=== PATIENT | female | born 2000 | race Caucasian/White ===

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

== ENCOUNTER 2018-08-21 03:04 | Inpatient (IN) | payer BC ==
[2018-08-21] MEDS ORDERED: Carboprost Tromethamine 250 MCG/1 ML Amp IM PRN (05:11)
[2018-08-21] MEDS ORDERED: Lidocaine 1% 50 ML MDV INJECT PRN (05:11)
[2018-08-21] MEDS ORDERED: Sodium Chloride 0.9% 10 ML Syringe FLUSH PRN (05:11)
[2018-08-21] MEDS ORDERED: Sodium Chloride 0.9% 10 ML SDV IV PRN (05:11)
[2018-08-21] MEDS ORDERED: Sodium Chloride 0.9% 2.5 ML Syringe FLUSH PRN (05:11)
[2018-08-21] MEDS ORDERED: Nalbuphine 10 MG/1 ML Vial IVPUSH PRN (05:11)
[2018-08-21] MEDS ORDERED: Tranexamic Acid 1,000 MG in Sodium Chloride 0.9% 100 ML IV PRN (05:11)
[2018-08-21] MEDS ORDERED: Methylergonovine 0.2 MG/1 ML Amp IM PRN (05:11)
[2018-08-21] MEDS ORDERED: Misoprostol 200 MCG Tab PO PRN (05:11)
[2018-08-21] MEDS ORDERED: Butorphanol 1 MG/ML SDV IVPUSH PRN (05:11)
[2018-08-21] MEDS ORDERED: Water For Irrigation,Sterile 1,000 ML Container IRR PRN (05:11)
[2018-08-21] MEDS: Lactated Ringers 1,000 ML IV SCH ×4 (05:12→10:11)
[2018-08-21] MEDS ORDERED: Nalbuphine 10 MG/1 ML Vial ONE (05:14)
[2018-08-21] MEDS ORDERED: Oxytocin/0.9 % Sodium Chloride 30 UNIT/500 ML BAG IV SCH ×2 (05:15→09:00)
--- NOTE | 2018-08-21 05:27 | PCM.LDHP ---
L&D History of Present Illness - General Date of Service: 08/21/18 Admit Problem/Dx: Patient Status Order with Admit Dx/Problem 08/21/18 03:16 Patient Status [ADT] Routine 08/21/18 05:11 Patient Status [ADT] Routine Admission Diagnosis/Problem Admission Diagnosis/Problem - planned 08/21/18 05:19 18 yo EDC 08/20/2018 40 1/70 wks, Active labor, O-, [place], GBS neg. Source of Information: Patient History Limitations: Reports: No Limitations - History of Present Illness Timing/Duration: Reports: minutes: Location, : Reports: Abdomen, Lower back Quality: Reports: Ache, Pressure, Stabbing Severity: Moderate Improves with: Reports: None Worsens with: Reports: None Associated Symptoms: Reports: N - Related Data Allergies/Adverse Reactions: Allergies Allergy/AdvReac Type Severity Reaction Status Date / Time No Known Allergies Allergy Verified 07/31/18 22:30 Home Medications: Home Meds Biotin 1 cap PO DAILY 07/31/18 [History] Cranberry Conc/C/Bacill Coag [Cranberry Tablet] 1 tab PO DAILY 07/31/18 [History ] PNV95/Ferrous Fumarate/FA [ Vitamins Tablet] 1 tab PO DAILY 07/31/18 [ History] Past Medical History - Past Health History Medical/Surgical History: Denies 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: Musculoskeletal History: Reports: Fracture Neurological History: Reports: Headaches, Chronic Psychiatric History: Reports: Anxiety, Depression, Panic Attack Social & Family History - Family History Family Medical History: Noncontributory Cardiac: Reports: Bypass, Heart Failure, High Cholesterol, Hypertension, [place], Prior Cardiac Arrest Respiratory: Reports: Asthma GI: Reports: Irritable Bowel Syndrome : Reports: Renal Calculus OBGYN: Reports: Musculoskeletal: Reports: Arthritis, Fibromyalgia Neurological: Reports: Dementia, Migraines Psychiatric: Reports: ADHD, Depression, Learning Disability Endocrine/Metabolic: Reports: Diabetes, Type I - Caffeine Use Caffeine Use: Reports: Coffee, Energy Drinks H&P Review of Systems - Review of Systems: Review Of Systems: See Below General: Reports: No Symptoms HEENT: Reports: No Symptoms Pulmonary: Reports: No Symptoms Cardiovascular: Reports: No Symptoms Gastrointestinal: Reports: No Symptoms Genitourinary: Reports: No Symptoms Musculoskeletal: Reports: No Symptoms Skin: Reports: No Symptoms Psychiatric: Reports: No Symptoms Neurological: Reports: No Symptoms Hematologic/Lymphatic: Reports: No Symptoms Immunologic: Reports: No Symptoms L&D Exam - Exam Exam: See Below - Vital Signs Weight: 82.1 kg - OB Specific Contraction Intensity: Strong Movement: Active Heart Tones: Present Heart Tones per Min: 136 Heart Rate (FHR) Variability: Moderate (6-25 bmp) Presentation: Vertex - Mota Score Mota Score Cervix Position: Midposition Mota Score Consistency: Soft Mota Score Effacement: >80% Mota Score Dilation: > 5 cm Mota Score Infant's Station: -1 ,0 Mota Score Total: 11 - Exam General: Alert, Oriented, Cooperative HEENT: Hearing Intact Lungs: Normal Respiratory Effort GI/Abdominal Exam: Soft, Non-Tender Rectal Exam: Deferred Genitourinary: Normal external exam, Cervical dilitation. No: Cervical fluid, Vaginal bleeding Extremities: Normal Inspection, Normal Range of Motion, Non-Tender, No Pedal Edema Skin: Warm, Dry, Intact Neurological: Cranial Nerves Intact, Reflexes Equal Bilateral, Normal Gait, Normal Speech, Normal Tone Psychiatric: Alert, Normal Affect, Normal Mood - Problem List (1) Supervision of normal IUP (intrauterine ) in multigravida SNOMED Code(s): 792523089, [id number], [id number] ICD Code: Z34.80 - ENCOUNTER FOR SUPRVSN OF NORMAL , UNSP TRIMESTER Status: Acute Priority: High Current Visit: Yes Qualifiers: Trimester: third trimester Qualified Code(s): Z34.83 - Encounter for supervision of other normal , third trimester Problem List Initiated/Reviewed/Updated: Yes Orders Last 24hrs: Active Orders 24 hr Category Date Time Status Patient Status [ADT] Routine ADT 08/21/18 03:16 Active Patient Status [ADT] Routine ADT 08/21/18 05:11 Active Heart Tones [RC] CONTINUOUS Care 08/21/18 05:11 Active Non Stress Test [RC] PER UNIT ROUTINE Care 08/21/18 03:16 Active Non Stress Test [RC] PER UNIT ROUTINE Care 08/21/18 05:11 Active May Shower [RC] ASDIRECTED Care 08/21/18 05:11 Active Notify Provider [RC] PRN Care 08/21/18 05:11 Active Up ad Radha [RC] ASDIRECTED Care 08/21/18 03:16 Active Vaginal Exam [RC] Click to Edit Care 08/21/18 03:16 Active Vital Signs [RC] PER UNIT ROUTINE Care 08/21/18 03:16 Active CBC W/O DIFF,HEMOGRAM [HEME] Routine Lab 08/21/18 05:11 Ordered TYPE AND SCREEN [BBK] Routine Lab 08/21/18 05:11 Ordered Butorphanol [Stadol] Med 08/21/18 05:11 Active 1 mg IVPUSH Q1H PRN Carboprost Tromethamine [Hemabate DS] Med 08/21/18 05:11 Active 250 mcg IM ASDIRECTED PRN Lactated Ringers [Ringers, Lactated] 1,000 ml Med 08/21/18 05:15 Active IV ASDIRECTED Lidocaine 1% [Xylocaine 1%] Med 08/21/18 05:11 Active 50 ml INJECT ONETIME PRN Methylergonovine [Methergine] Med 08/21/18 05:11 Active 0.2 mg IM ASDIRECTED PRN Nalbuphine [Nubain] Med 08/21/18 05:11 Active 10 mg IVPUSH Q1H PRN Oxytocin/0.9 % Sodium Chloride [Oxytocin 30 Unit/500 ML Med 08/21/18 05:15 Active -NS] 30 unit in 500 ml IV TITRATE Sodium Chloride 0.9% [Normal Saline] Med 08/21/18 05:11 Active 10 ml IV ASDIRECTED PRN Sodium Chloride 0.9% [Saline Flush] Med 08/21/18 05:11 Active 10 ml FLUSH ASDIRECTED PRN Sodium Chloride 0.9% [Saline Flush] Med 08/21/18 05:11 Active 2.5 ml FLUSH ASDIRECTED PRN Tranexamic Acid [Cyklokapron] 1,000 mg Med 08/21/18 05:11 Active Sodium Chloride 0.9% [Normal Saline] 100 ml IV ONETIME Water For Irrigation,Sterile [Sterile Water for Med 08/21/18 05:11 Active Irrigation] 1,000 ml IRR ASDIRECTED PRN miSOPROStol [Cytotec] Med 08/21/18 05:11 Active 200 mcg PO ONETIME PRN Scalp Electrode [WOMSER] Per Unit Routine Oth 08/21/18 05:11 Ordered Peripheral IV Insertion Adult [OM.PC] Routine Oth 08/21/18 05:11 Ordered Resuscitation Status Routine Resus Stat 08/21/18 03:16 Ordered Medication Orders Butorphanol Tartrate (Stadol) 1 mg IVPUSH Q1H PRN PRN Reason: Pain Carboprost Tromethamine (Hemabate Ds) 250 mcg IM ASDIRECTED PRN PRN Reason: Post Hemorrhage Tranexamic Acid 1,000 mg/ (Sodium Chloride) 110 mls @ 660 mls/hr IV ONETIME PRN PRN Reason: Bleeding Lactated Ringer's (Ringers, Lactated) 1,000 mls @ 150 mls/hr IV ASDIRECTED SRIRAM Oxytocin/Sodium Chloride (Oxytocin 30 Unit/500 Ml-Ns) 30 unit in 500 mls @ 500 mls/hr IV TITRATE SRIRAM Lidocaine HCl (Xylocaine 1%) 50 ml INJECT ONETIME PRN PRN Reason: Laceration repair Methylergonovine Maleate (Methergine) 0.2 mg IM ASDIRECTED PRN PRN Reason: Post Hemorrhage Misoprostol (Cytotec) 200 mcg PO ONETIME PRN PRN Reason: Post Hemorrhage Nalbuphine HCl (Nubain) 10 mg IVPUSH Q1H PRN PRN Reason: Pain (severe 7-10) Sodium Chloride (Saline Flush) 10 ml FLUSH ASDIRECTED PRN PRN Reason: Keep Vein Open Sodium Chloride (Saline Flush) 2.5 ml FLUSH ASDIRECTED PRN PRN Reason: Keep Vein Open Sodium Chloride (Normal Saline) 10 ml IV ASDIRECTED PRN PRN Reason: IV Use Sterile Water (Sterile Water For Irrigation) 1,000 ml IRR ASDIRECTED PRN PRN Reason: delivery Assessment/Plan Comment:: Labor A: 18 yo EDC 08/20/2018 40 1/70 wks, Active labor, O-, [place], GBS neg. P: Admit, epidural now, anticipate , Dr Potts updated.
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
[2018-08-21] MEDS ORDERED: fentaNYL 100 MCG/2 ML SDV ONE (06:13)
[2018-08-21] MEDS ORDERED: Ropivacaine HCl/PF 100 ML ONE (06:13)
[2018-08-21] MEDS ORDERED: Ondansetron 4 MG/2 ML SDV ONE (08:48)
[2018-08-21] MEDS ORDERED: Ondansetron 4 MG/2 ML SDV IVPUSH ONE (08:53)
[2018-08-21] MEDS ORDERED: Misoprostol 25 MCG (1/4 of 100 MCG) Tab VAG PRN ×2 (08:56)
[2018-08-21] MEDS ORDERED: Terbutaline 1 MG/ML SDV SUBCUT PRN (08:56)
--- NOTE | 2018-08-21 12:29 | PCM.DEL ---
L & D Note - General Info Date of Service: 08/21/18 Mother's Due Date: 08/20/18 - Delivery Note Labor: Augmented by Oxytocin Delivery Outcome: Livebirth Infant Delivery Method: Spontaneous Vaginal Delivery-Single Delivery Mode: Spontaneous Presentation: Vertex Nuchal Cord: None Anesthesia Type: Epidural Amniotic Fluid Description: Meconium Stained Episiotomy Type: None Laceration: None Placenta: Intact, Spontaneous Cord: 3 Vessels Estimated Blood Loss: 100 Resuscitation Needed: No Score 1 min: 8 Score 5 min: 9 Second Stage Interventions: Reports: Pushing, Pulls Own Legs Back Delivery Comments (Free Text/Narrative):: of viable female, head delivered, shoulders and body followed easily. Terminal mec noted. Infant to mothers abd, spont cry. RN at for evaluation. Delayed cord clamping, pitocin to IVF, Cord clamped x2 and cut by FOB. Cord blood collected. Placenta delivered grossly intact, 3VC. EBL 100cc, Inspection noted perineum intact. APGARS 8/9, Wt: 6lb 15oz, mother and baby left in stable condition for recovery. - General Info Date of Service: 08/21/18 Admission Dx/Problem (Free Text): Patient Status Order with Admit Dx/Problem 08/21/18 03:16 Patient Status [ADT] Routine 08/21/18 05:11 Patient Status [ADT] Routine Admission Diagnosis/Problem Admission Diagnosis/Problem - planned 08/21/18 05:19 18 yo EDC 08/20/2018 40 1/70 wks, Active labor, O-, RI, GBS neg. Functional Status: Reports: Pain Controlled - Review of Systems General: Reports: No Symptoms HEENT: Reports: No Symptoms Pulmonary: Reports: No Symptoms Cardiovascular: Reports: No Symptoms Gastrointestinal: Reports: No Symptoms Genitourinary: Reports: No Symptoms Musculoskeletal: Reports: No Symptoms Skin: Reports: No Symptoms Neurological: Reports: No Symptoms Psychiatric: Reports: No Symptoms - Patient Data Vitals - Most Recent: Last Vital Signs Temp Pulse Resp BP 128/79 08/21/18 06:57 Pulse Ox Weight - Most Recent: 82.1 kg I&O - Last 24 Hours: Intake & Output 08/20/18 08/21/18 08/21/18 22:59 06:59 14:59 Intake Total 1000 Balance 1000 Lab Results Last 24 Hours: Laboratory Results - last 24 hr 08/21/18 08/21/18 Range/Units 05:35 05:35 WBC 11.96 H (4.0-11.0) K/uL RBC 4.13 L (4.30-5.90) M/uL Hgb 11.8 L (12.0-16.0) g/dL Hct 36.8 (36.0-46.0) % MCV 89.1 (80.0-98.0) fL MCH 28.6 (27.0-32.0) pg MCHC 32.1 (31.0-37.0) g/dL RDW Std Deviation 48.7 (28.0-62.0) fl RDW Coeff of Americo 15 (11.0-15.0) % Plt Count 177 (150-400) K/uL MPV 11.20 (7.40-12.00) fL Nucleated RBC % 0.0 /100WBC Nucleated RBCs # 0 K/uL Blood Type O NEGATIVE Antibody Screen NEGATIVE Med Orders - Current: Current Medications Butorphanol Tartrate (Stadol) 1 mg IVPUSH Q1H PRN PRN Reason: Pain Carboprost Tromethamine (Hemabate Ds) 250 mcg IM ASDIRECTED PRN PRN Reason: Post Hemorrhage Tranexamic Acid 1,000 mg/ (Sodium Chloride) 110 mls @ 660 mls/hr IV ONETIME PRN PRN Reason: Bleeding Lactated Ringer's (Ringers, Lactated) 1,000 mls @ 150 mls/hr IV ASDIRECTED SRIRAM Last Admin: 08/21/18 10:11 Dose: 150 mls/hr Oxytocin/Sodium Chloride (Oxytocin 30 Unit/500 Ml-Ns) 30 unit in 500 mls @ 500 mls/hr IV TITRATE SRIRAM Oxytocin/Sodium Chloride (Oxytocin 30 Unit/500 Ml-Ns) 30 unit in 500 mls @ 2 mls/hr IV TITRATE SRIRAM; Protocol Last Titration: 08/21/18 10:09 Dose: 4 munits/min, 4 mls/hr Lidocaine HCl (Xylocaine 1%) 50 ml INJECT ONETIME PRN PRN Reason: Laceration repair Methylergonovine Maleate (Methergine) 0.2 mg IM ASDIRECTED PRN PRN Reason: Post Hemorrhage Misoprostol (Cytotec) 200 mcg PO ONETIME PRN PRN Reason: Post Hemorrhage Misoprostol (Cytotec) 25 mcg VAG ONETIME PRN PRN Reason: Cervical Ripening Misoprostol (Cytotec) 25 mcg VAG Q4H PRN PRN Reason: Cervical Ripening Nalbuphine HCl (Nubain) 10 mg IVPUSH Q1H PRN PRN Reason: Pain (severe 7-10) Sodium Chloride (Saline Flush) 10 ml FLUSH ASDIRECTED PRN PRN Reason: Keep Vein Open Sodium Chloride (Saline Flush) 2.5 ml FLUSH ASDIRECTED PRN PRN Reason: Keep Vein Open Sodium Chloride (Normal Saline) 10 ml IV ASDIRECTED PRN PRN Reason: IV Use Sterile Water (Sterile Water For Irrigation) 1,000 ml IRR ASDIRECTED PRN PRN Reason: delivery Terbutaline Sulfate (Brethine) 0.25 mg SUBCUT ASDIRECTED PRN PRN Reason: Tacysystole Discontinued Medications Fentanyl (Sublimaze) Confirm Administered Dose 100 mcg .ROUTE .STK-MED ONE Stop: 08/21/18 06:14 Ropivacaine (Naropin 0.2%) Confirm Administered Dose 100 mls @ as directed .ROUTE .STK-MED ONE Stop: 08/21/18 06:14 Nalbuphine HCl (Nubain) Confirm Administered Dose 10 mg .ROUTE .STK-MED ONE Stop: 08/21/18 05:15 Last Admin: 08/21/18 05:20 Dose: 10 mg Ondansetron HCl (Zofran) Confirm Administered Dose 4 mg .ROUTE .STK-MED ONE Stop: 08/21/18 08:49 Last Admin: 08/21/18 08:54 Dose: 4 mg Ondansetron HCl (Zofran) 4 mg IVPUSH ONETIME ONE Stop: 08/21/18 08:54 - Exam General: Alert, Oriented, Cooperative, No Acute Distress Lungs: Normal Respiratory Effort (Female) Exam: Normal External Exam, Normal Bimanual Exam, Vaginal Bleeding. No: Vaginal Lesions, Vaginal Tears Back Exam: Normal Inspection, Full Range of Motion Extremities: Normal Inspection, Normal Range of Motion, Non-Tender Skin: Warm, Dry, Intact Wound/Incisions: Healing Well Neurological: No New Focal Deficit, Normal Speech, Normal Tone, Strength Equal Bilateral Psy/Mental Status: Alert, Normal Affect, Normal Mood - Problem List & Annotations (1) Supervision of normal IUP (intrauterine ) in multigravida SNOMED Code(s): 060025590, 389202185, 970229779 Code(s): Z34.80 - ENCOUNTER FOR SUPRVSN OF NORMAL , UNSP TRIMESTER Status: Acute Priority: High Current Visit: Yes Qualifiers: Trimester: third trimester Qualified Code(s): Z34.83 - Encounter for supervision of other normal , third trimester (2) (normal spontaneous vaginal delivery) SNOMED Code(s): 35427551 Code(s): O80 - ENCOUNTER FOR FULL-TERM UNCOMPLICATED DELIVERY Status: Acute Priority: High Current Visit: Yes - Problem List Review Problem List Initiated/Reviewed/Updated: Yes - My Orders Last 24 Hours: My Active Orders 08/21/18 08:56 Bedrest Bathroom Privileges [RC] ASDIRECTED Communication Order [RC] ASDIRECTED Communication Order [RC] ASDIRECTED Communication Order [RC] ASDIRECTED Notify Provider [RC] PRN Notify Provider [RC] PRN Notify Provider [RC] STAT Oxygen Therapy [RC] ASDIRECTED Vaginal Exam [RC] PRN Vital Signs [RC] PER UNIT ROUTINE Terbutaline [Brethine] 0.25 mg SUBCUT ASDIRECTED PRN miSOPROStol [Cytotec] 25 mcg VAG ONETIME PRN miSOPROStol [Cytotec] 25 mcg VAG Q4H PRN 08/21/18 09:00 Oxytocin/0.9 % Sodium Chloride [Oxytocin 30 Unit/500 ML-NS] 30 unit in 500 ml IV TITRATE Medication Administration Instruction [OM.PC] Q3H - Plan Plan:: Labor A: 18 yo EDC 08/20/2018 40 1/70 wks, Active labor, O-, RI, GBS neg. P: Admit, epidural now, anticipate , Dr Potts updated. Delivery A: viable female, APGARS 8/9, Wt: 6lb 15oz. Intact perineum, EBL 100cc, Mother and baby stable P: Routine pp plan of care
[2018-08-21] MEDS ORDERED: Ibuprofen 400 MG Tab PO PRN (12:35)
[2018-08-21] MEDS ORDERED: Acetaminophen 500 MG Tab PO PRN (12:35)
[2018-08-21] MEDS ORDERED: Bisacodyl 10 MG Supp RECTAL PRN (12:35)
[2018-08-21] MEDS ORDERED: oxyCODONE 5 MG Tab PO PRN (12:35)
[2018-08-21] MEDS ORDERED: Lanolin 100% Cream 7 GM Tube TOP PRN (12:35)
[2018-08-21] MEDS ORDERED: Witch Hazel Medicated Pads 40/Jar TOP PRN (12:35)
[2018-08-21] MEDS ORDERED: Benzocaine/Menthol 20%-0.5% Spray 78 GM Cannister TOP PRN (12:35)
[2018-08-21] MEDS: Docusate Sodium 100 MG Cap PO PRN (14:54)
[2018-08-21] MEDS: Ibuprofen 800 MG Tab PO PRN ×2 (14:54→21:55)
[2018-08-21] MEDS: Acetaminophen 500 MG Tab PO PRN (19:40)
[2018-08-22] MEDS: Acetaminophen 500 MG Tab PO PRN (02:07)
[2018-08-22] MEDS: Docusate Sodium 100 MG Cap PO PRN (08:42)
[2018-08-22] MEDS: Ibuprofen 800 MG Tab PO PRN (08:42)
--- NOTE | 2018-08-22 08:49 | PCM.DCSUM1 ---
Discharge Summary - Hospital Course Free Text/Narrative:: Discharge home with infant. Follow up 6 weeks for . Diagnosis: Stroke: No - Discharge Data Discharge Date: 08/22/18 Discharge Disposition: Home, Self-Care 01 Condition: Good - Discharge Diagnosis/Problem(s) (1) Supervision of normal IUP (intrauterine ) in multigravida SNOMED Code(s): 992899339, 890358366, 869719777 ICD Code: Z34.80 - ENCOUNTER FOR SUPRVSN OF NORMAL , UNSP TRIMESTER Status: Acute Priority: High Current Visit: Yes Qualifiers: Trimester: third trimester Qualified Code(s): Z34.83 - Encounter for supervision of other normal , third trimester (2) (normal spontaneous vaginal delivery) SNOMED Code(s): 24172163 ICD Code: O80 - ENCOUNTER FOR FULL-TERM UNCOMPLICATED DELIVERY Status: Acute Priority: High Current Visit: Yes - Patient Instructions Diet: Usual Diet as Tolerated Activity: As Tolerated, No Strenuous Activities, Rest and Relax Today Driving: May Drive Today Showering/Bathing: May Shower Notify Provider of: Fever, Increased Pain, Swelling and Redness, Nausea and/or Vomiting Other/Special Instructions: Discharge home with infant. Follow up 6 weeks for . - Discharge Plan *PRESCRIPTION DRUG MONITORING PROGRAM REVIEWED*: Not Applicable *COPY OF PRESCRIPTION DRUG MONITORING REPORT IN PATIENT TISHA: Not Applicable Prescriptions/Med Rec: Ibuprofen [Motrin] 800 mg PO Q6H PRN #90 tablet PRN Reason: Pain Home Medications: Home Meds Biotin 1 cap PO DAILY 07/31/18 [History] Cranberry Conc/C/Bacill Coag [Cranberry Tablet] 1 tab PO DAILY 07/31/18 [History ] PNV95/Ferrous Fumarate/FA [ Vitamins Tablet] 1 tab PO DAILY 07/31/18 [ History] Ibuprofen [Motrin] 800 mg PO Q6H PRN #90 tablet 08/22/18 [Rx] Referrals: [facility] [Outside] Debi Felix CNM [Mid-] - 10/02/18 3:00 pm (6 week post ) - Discharge Summary/Plan Comment DC Time >30 min.: Yes - General Info Date of Service: 08/22/18 Admission Dx/Problem (Free Text: Patient Status Order with Admit Dx/Problem 08/21/18 03:16 Patient Status [ADT] Routine 08/21/18 05:11 Patient Status [ADT] Routine Admission Diagnosis/Problem Admission Diagnosis/Problem - planned 08/21/18 05:19 18 yo EDC 08/20/2018 40 1/70 wks, Active labor, O-, RI, GBS neg. Functional Status: Reports: Pain Controlled, Tolerating Diet, Ambulating, Urinating - Review of Systems General: Reports: No Symptoms HEENT: Reports: No Symptoms Pulmonary: Reports: No Symptoms Cardiovascular: Reports: No Symptoms Gastrointestinal: Reports: No Symptoms Genitourinary: Reports: No Symptoms Musculoskeletal: Reports: No Symptoms Skin: Reports: No Symptoms Neurological: Reports: No Symptoms Psychiatric: Reports: No Symptoms - Patient Data Vitals - Most Recent: Last Vital Signs Temp 36.4 C 08/22/18 07:40 Pulse 76 08/22/18 07:40 Resp 16 08/22/18 07:40 BP 121/64 08/22/18 07:40 Pulse Ox 99 08/22/18 07:40 Weight - Most Recent: 82.1 kg I&O - Last 24 hours: Intake & Output 08/21/18 08/22/18 08/22/18 22:59 06:59 14:59 Intake Total 502 Balance 502 Lab Results - Last 24 hrs: Laboratory Results - last 24 hr 08/21/18 Range/Units 13:19 Screen NEGATIVE (NEGATIVE) RhIG Candidate? YES Rhogam Indicated YES, BABY RH POS H Med Orders - Current: Current Medications Acetaminophen (Tylenol Extra Strength) 500 mg PO Q4H PRN PRN Reason: Pain Acetaminophen (Tylenol Extra Strength) 1,000 mg PO Q4H PRN PRN Reason: Pain Last Admin: 08/22/18 02:07 Dose: 1,000 mg Benzocaine/Menthol (Dermoplast Pain Relief 20%-0.5% [place]) 78 gm TOP ASDIRECTED PRN PRN Reason: Perineal Comfort Measure Last Admin: 08/21/18 14:55 Dose: 1 canister Bisacodyl (Dulcolax) 10 mg RECTAL ONETIME PRN PRN Reason: Constipation Docusate Sodium (Colace) 100 mg PO BID PRN PRN Reason: Constipation Last Admin: 08/22/18 08:42 Dose: 100 mg Emollient Ointment (Lansinoh Hpa) 0 gm TOP ASDIRECTED PRN PRN Reason: Sore Nipples Last Admin: 08/22/18 08:41 Dose: 7 tube Ibuprofen (Motrin) 400 mg PO Q4H PRN PRN Reason: Pain Ibuprofen (Motrin) 800 mg PO Q6H PRN PRN Reason: Pain Last Admin: 08/22/18 08:42 Dose: 800 mg Oxycodone HCl (Oxycodone) 5 mg PO Q2H PRN PRN Reason: Pain Witch Bonnie (Tucks) 1 pad TOP ASDIRECTED PRN PRN Reason: comfort care Discontinued Medications Butorphanol Tartrate (Stadol) 1 mg IVPUSH Q1H PRN PRN Reason: Pain Carboprost Tromethamine (Hemabate Ds) 250 mcg IM ASDIRECTED PRN PRN Reason: Post Hemorrhage Fentanyl (Sublimaze) Confirm Administered Dose 100 mcg .ROUTE .STK-MED ONE Stop: 08/21/18 06:14 Tranexamic Acid 1,000 mg/ (Sodium Chloride) 110 mls @ 660 mls/hr IV ONETIME PRN PRN Reason: Bleeding Lactated Ringer's (Ringers, Lactated) 1,000 mls @ 150 mls/hr IV ASDIRECTED SRIRAM Last Admin: 08/21/18 10:11 Dose: 150 mls/hr Oxytocin/Sodium Chloride (Oxytocin 30 Unit/500 Ml-Ns) 30 unit in 500 mls @ 500 mls/hr IV TITRATE SRIRAM Ropivacaine (Naropin 0.2%) Confirm Administered Dose 100 mls @ as directed .ROUTE .STK-MED ONE Stop: 08/21/18 06:14 Oxytocin/Sodium Chloride (Oxytocin 30 Unit/500 Ml-Ns) 30 unit in 500 mls @ 2 mls/hr IV TITRATE [facility]; Protocol Last Titration: 08/21/18 12:02 Dose: 500 mls/hr Lidocaine HCl (Xylocaine 1%) 50 ml INJECT ONETIME PRN PRN Reason: Laceration repair Methylergonovine Maleate (Methergine) 0.2 mg IM ASDIRECTED PRN PRN Reason: Post Hemorrhage Misoprostol (Cytotec) 200 mcg PO ONETIME PRN PRN Reason: Post Hemorrhage Misoprostol (Cytotec) 25 mcg VAG ONETIME PRN PRN Reason: Cervical Ripening Misoprostol (Cytotec) 25 mcg VAG Q4H PRN PRN Reason: Cervical Ripening Nalbuphine HCl (Nubain) 10 mg IVPUSH Q1H PRN PRN Reason: Pain (severe 7-10) Nalbuphine HCl (Nubain) Confirm Administered Dose 10 mg .ROUTE .STK-MED ONE Stop: 08/21/18 05:15 Last Admin: 08/21/18 05:20 Dose: 10 mg Ondansetron HCl (Zofran) Confirm Administered Dose 4 mg .ROUTE .STK-MED ONE Stop: 08/21/18 08:49 Last Admin: 08/21/18 08:54 Dose: 4 mg Ondansetron HCl (Zofran) 4 mg IVPUSH ONETIME ONE Stop: 08/21/18 08:54 Sodium Chloride (Saline Flush) 10 ml FLUSH ASDIRECTED PRN PRN Reason: Keep Vein Open Sodium Chloride (Saline Flush) 2.5 ml FLUSH ASDIRECTED PRN PRN Reason: Keep Vein Open Sodium Chloride (Normal Saline) 10 ml IV ASDIRECTED PRN PRN Reason: IV Use Sterile Water (Sterile Water For Irrigation) 1,000 ml IRR ASDIRECTED PRN PRN Reason: delivery Terbutaline Sulfate (Brethine) 0.25 mg SUBCUT ASDIRECTED PRN PRN Reason: Tacysystole - Exam General: Reports: Alert, Oriented, Cooperative, No Acute Distress Lungs: Reports: Normal Respiratory Effort GI/Abdominal Exam: Soft, Non-Tender (Female) Exam: Deferred, Vaginal Bleeding Rectal (Female) Exam: Deferred Back Exam: Reports: Normal Inspection, Full Range of Motion Extremities: Normal Inspection, Normal Range of Motion, Non-Tender, No Pedal Edema Skin: Reports: Warm, Dry, Intact Neurological: Reports: No New Focal Deficit, Normal Gait, Normal Speech, Normal Tone, Strength Equal Bilateral Psy/Mental Status: Reports: Alert, Normal Affect, Normal Mood
--- NOTE | 2018-08-22 13:30 | PCM.POSTAN ---
POST ANESTHESIA ASSESSMENT - MENTAL STATUS Mental Status: Alert, Oriented - RESPIRATORY Respiratory Status: Respiratory Rate WNL, Airway Patent, O2 Saturation Stable - CARDIOVASCULAR CV Status: Pulse Rate WNL, Blood Pressure Stable - GASTROINTESTINAL GI Status: No Symptoms - POST OP HYDRATION Hydration Status: Adequate & Stable
--- NOTE | 2018-08-22 13:32 | PCM48HPAN ---
Post Anesthesia Note - EVALUATION WITHIN 48HRS OF ANESTHETIC Vital Signs in Normal Range: Yes Patient Participated in Evaluation: Yes Respiratory Function Stable: Yes Airway Patent: Yes Cardiovascular Function Stable: Yes Hydration Status Stable: Yes Pain Control Satisfactory: Yes Nausea and Vomiting Control Satisfactory: Yes Mental Status Recovered: Yes Resp Rate: 16 Blood Pressure: 128/79
== END 2018-08-22 15:20 | disposition home or self-care (01) | DRG 560 ==
LOC: MW.OBCHECK 03:04 → MW.OB 03:10 → MW.OBCHECK 05:11 → OBSVTOIN 12:01 → MW.OB 16:38
PROVIDERS: ADMIT Obstetrics & Gynecology; ATTEND Obstetrics & Gynecology
PROC: 10E0XZZ Delivery of Products of Conception, External Approach (ICD-10-PCS; principal; 2018-08-21)
PROC: 6A550ZT Pheresis of Cord Blood Stem Cells, Single (ICD-10-PCS; principal; 2018-08-21)
PROC: 3E0234Z Introduction of Serum, Toxoid and Vaccine into Muscle, Percutaneous Approach (ICD-10-PCS; 2018-08-21)
PROC: 00HU33Z Insertion of Infusion Device into Spinal Canal, Percutaneous Approach (ICD-10-PCS; 2018-08-21)
PROC: 3E0R3BZ Introduction of Anesthetic Agent into Spinal Canal, Percutaneous Approach (ICD-10-PCS; 2018-08-21)
DX: O48.0 Post-term pregnancy (principal); Z3A.40 40 weeks gestation of pregnancy; Z37.0 Single live birth; O99.344 Other mental disorders complicating childbirth; F32.9 Major depressive disorder, single episode, unspecified; F41.9 Anxiety disorder, unspecified; O26.893 Other specified pregnancy related conditions, third trimester; Z67.41 Type O blood, Rh negative; O77.0 Labor and delivery complicated by meconium in amniotic fluid
CPT/HCPCS: 36415; 36430; 51702; 59025; 59409; 85027; 85460; 86850; 86900; 86901; A9270-GY; J2300; J2405; J2590; J2792; J2795; J3010; J7120